=== PATIENT | female | born 1985 | race Caucasian/White ===

== ENCOUNTER 2017-05-09 05:37 | Outpatient (CLI) | payer MEDICAID ==
[~2017-05-09] VITALS: Ht 162.6 cm; Wt 68.2 kg
[~2017-05-09 05:37] MED LIST: ACHYD1T PO; FLUO20CA25 PO; FLX10C PO; HYDR-89 PO; IBP800T PO; PREN1TAB39; PREN1TAB39 PO; PREN1TAB71 PO
== END 2017-05-09 10:39 ==
LOC: PREOP 05:37
PROVIDERS: ATTEND Obstetrics & Gynecology
DX: Z01.818 Encounter for other preprocedural examination (principal); O02.1 Missed abortion

== ENCOUNTER 2017-05-16 06:47 | Day surgery (SDC) | payer MEDICAID, OTHER ==
--- NOTE | 2017-05-14 11:45 | HISTORY AND PHYSICAL ---
DICTATING PHYSICIAN: Dr. Mercado DATE OF ADMISSION: 05/16/2017 PREOPERATIVE DIAGNOSES: Blighted ovum blighted ovum. HISTORY OF PRESENT ILLNESS: The patient is a 32-year-old G7, P5, A1, white female currently at approximately the 7 and 9 weeks gestation. She has been followed with abnormally rising quantitative hCG and that has not developed either a yolk sac or a pole. There was no heart motion on ultrasound 05/06/2017. With a nonviable . The patient has had opted for observation until this point is ready to have the process completed. She will be admitted on Friday05/16/2017 for outpatient D\T\C. The patient denies bleeding, denies headache, denies chest pain denies shortness of breath. ALLERGIES: None. MEDICATIONS: vitamins and diclegis PAST MEDICAL HISTORY: Is significant for having had kidney stones in 1998 and again in the year 1999. PAST SURGICAL HISTORY: 1. Includes repair of a torn ACL in August 2003. 2. She had part of one of her kneecaps removed in May 2000. 3. The patient has had five vaginal deliveries without events. REVIEW OF SYSTEMS: Per the HPI. FAMILY HISTORY: Noncontributory. SOCIAL HISTORY: The patient denies tobacco, drug, or alcohol use. She is . HEENT: Normal. NECK: Supple with no lymphadenopathy. No thyromegaly. ABDOMEN: Soft, nontender, nondistended. EXTREMITIES: Extremities show no clubbing or cyanosis. There is no Homans sign. PELVIC EXAM: On 05/06/2017 showed a closed cervix with the uterus that was 6 to 8 week size and nontender. Ultrasound confirmed gestational sac consistent with 8-3/7 weeks. There was no heart motion. There was a suggestion of a yolk sac and a pole but that was pretty indefinite. The patient's blood type is O positive. ASSESSMENT AND PLAN: Approximately 8 week gestation with blighted ovum/missed AB. The patient will undergo outpatient D\T\C for resolution of this abnormal . Follow-up will be in clinic. Job ID: [id number] Dictated Date: 05/14/2017 11:18:28 Pot Annealer Date: 05/14/2017 11:33:52/juan
[~2017-05-16] VITALS: Ht 162.6 cm; Wt 68.2 kg
[2017-05-16] MEDS ORDERED: ceFAZolin 1,000 MG (ANCEF) VIAL ONE (06:49)
[2017-05-16] MEDS ORDERED: NS (IVPB) 50 ML ONE (06:49)
[2017-05-16 07:05] VITALS: BP 112/80
[2017-05-16] MEDS ORDERED: FAMOTIDINE 20MG/2ML IV (PEPCID) ONE (07:09)
[2017-05-16] MEDS ORDERED: ONDANSETRON 4 MG/2 ML (SDV) Z0FRAN ONE ×2 (07:09→08:22)
[2017-05-16 07:17] LABS: BASOPHILS % (AUTO) 0 % (0-10); EOSINOPHILS # (AUTO) 0.3 10^3/uL (0.0-0.3); EOSINOPHILS % (AUTO) 4 % (0-10); LYMPHOCYTES # (AUTO) 1.6 X 10^3 (1.0-4.0); LYMPHOCYTES % (AUTO) 22 % (12-44); MEAN CORPUSCULAR HEMOGLOBIN 29 PG (25-34); MEAN CORPUSCULAR HGB CONC 34 G/DL (32-36); MEAN CORPUSCULAR VOLUME 87 FL (80-99); MEAN PLATELET VOLUME 9.6 FL (7.4-10.4); MONOCYTES # (AUTO) 0.6 X 10^3 (0.0-1.0); MONOCYTES % (AUTO) 9 % (0-12); NEUTROPHILS # (AUTO) 4.9 X 10^3 (1.8-7.8); NEUTROPHILS % (AUTO) 66 % (42-75); PLATELET COUNT 235 10^3/uL (130-400); RED BLOOD COUNT 4.81 10^6/uL (4.35-5.85); RED CELL DISTRIBUTION WIDTH 12.6 % (10.0-14.5); WHITE BLOOD COUNT 7.5 10^3/uL (4.3-11.0)
[2017-05-16] MEDS ORDERED: LACTATED RINGERS 1,000 ML IV PRN (07:24)
[2017-05-16] MEDS ORDERED: FAMOTIDINE 20MG/2ML IV (PEPCID) IV ONE (07:30)
[2017-05-16] MEDS ORDERED: ONDANSETRON 4 MG/2 ML (SDV) Z0FRAN IV ONE (07:30)
[2017-05-16] MEDS ORDERED: ceFAZolin 1 GM/NS 50 ML IVPB IV ONE ×2 (07:45)
[2017-05-16] MEDS ORDERED: LIDOCAINE PF 2% 5 ML (XYLOCAINE) VIAL ONE (08:00)
[2017-05-16] MEDS ORDERED: proPOfol 200 MG/20 ML (DIPRIVAN) VIAL IV ONE (08:00)
[2017-05-16] MEDS ORDERED: MIDAZOLAM 2 MG/2 ML (VERSED) VIAL ONE (08:00)
[2017-05-16] MEDS ORDERED: SEVOFLURANE (ULTANE) 15 ML INHAL SOLN ONE ×3 (08:00→08:22)
[2017-05-16] MEDS ORDERED: fentaNYL INJECTION 100 MCG/2 ML AMP ONE (08:00)
[2017-05-16] MEDS ORDERED: LACTATED RINGERS 1,000 ML IV ONE (08:00)
[2017-05-16] MEDS ORDERED: D5 LR IV SOLUTION 1,000 ML IV SCH (08:07)
[2017-05-16] MEDS ORDERED: OXYC-202 PO (08:09)
--- NOTE | 2017-05-16 08:10 | Discharge Instructions ---
Discharge Instructions Discharge Medications New, Converted or Re-Newed RX: RX on Chart Patient Instructions Patient Instructions: as directed Return to The Hospital For: as directed Activity & Diet Discharge Diet: No Restrictions Activity as Tolerated: No Orders-Post D/C & Referrals Follow Up Appt: Call to make follow up appt. for patient in 2 weeks. Activity: Rest for 24 hours, than as tolerated. Diet: As tolerated-Clear Liquids only if nauseated. May shower or tub bathe as desired. No driving for 24 hours, no alcoholic beverages for 24 hours, and nothing per vagina (no tampons, douching, or intercourse) for 2 weeks. Patient to return to the clinic as soon as possible for: Temperature greater than 101F, Severe Pain, Foul discharge from incision or vagina, Excessive Bleeding (more than a period). ELIZABETH ANDREWS MD May 16, 2017 8:10 am
--- NOTE | 2017-05-16 08:11 | Progress Note-Pre Operative ---
Pre-Operative Progress Note H&P Reviewed The H&P was reviewed, patient examined and no changes noted. Date Seen by Provider: May 16, 2017 Time Seen by Provider: 08:10 Date H&P Reviewed: May 16, 2017 Time H&P Reviewed: 08:10 Pre-Operative Diagnosis: a plus week gestation with blighted ovum/missed AB ELIZABETH ANDREWS MD May 16, 2017 8:11 am
--- NOTE | 2017-05-16 08:11 | Progress Note-Post Operative ---
Post-Operative Progess Note Surgeon (s)/Vp Digital Marketing (s) Surgeon ELIZABETH ANDREWS MD Vp Digital Marketing: none Pre-Operative Diagnosis a plus week gestation with blighted ovum/missed AB Post-Operative Diagnosis same with pathology pending Procedure & Operative Findings Date of Procedure 05/16/17 Procedure Performed/Findings D&C for first trimester missed Anesthesia Type GETA Estimated Blood Loss Estimated blood loss (mL): 100cc Specimens/Packing Specimens Removed uterine contents/products of conception Packing: none ELIZABETH ANDREWS MD May 16, 2017 08:11
[2017-05-16] MEDS ORDERED: KETOROLAC 30 MG/ML VIAL IVP ONE (08:15)
[2017-05-16] MEDS ORDERED: PROMETHAZINE INJ 25 MG/ML (PHENERGAN) AMP IM ONE (08:15)
[2017-05-16] MEDS ORDERED: ONDANSETRON 4 MG/2 ML (SDV) Z0FRAN IVP PRN ×2 (08:15→09:00)
[2017-05-16] MEDS ORDERED: oxyCODONE/APAP 10/325MG (PERCOCET 10) TABLET PO PRN (08:15)
[2017-05-16] MEDS ORDERED: MEPERIDINE (DEMEROL) INJ 100 MG/ML IM ONE (08:15)
[2017-05-16] MEDS ORDERED: DEXAMETHASONE PF 10 MG/ML (DECADRON) VIAL ONE (08:22)
[2017-05-16] MEDS ORDERED: morphine INJ 10 MG/ML 1ML (SYR OR VIAL) IVP PRN (09:00)
[2017-05-16 09:25] VITALS: BP 101/71
[2017-05-16 09:55] VITALS: BP_SYST 91; BP_DIAS 64; BP_DIAS 68
--- NOTE | 2017-05-16 10:05 | OPERATIVE REPORT ---
DATE OF SERVICE: 05/16/2017 PREOPERATIVE DIAGNOSES: Blighted ovum/missed /first trimester. POSTOPERATIVE DIAGNOSES: Blighted ovum/missed /first trimester, with pathology pending. OPERATIVE PROCEDURE: D and C. OPERATIVE DESCRIPTION: With the patient in the supine position under satisfactory general anesthesia, she was repositioned in the candycane stirrups, then prepped and draped in the usual fashion for vaginal surgery. She had voided prior to coming to the operating room. A weighted speculum was placed in the posterior fornix of the vagina, the cervix exposed and grasped anteriorly with a single tooth tenaculum. The uterus was sounded to 14 cm with the use of sounds. The cervix was then serially dilated with Jamar dilators to accommodate a #10 curved sucking curet which was introduced in the uterine cavity. Curettage with removal of a large amount of trophoblastic and desidual appearing tissue, some blood clot, amniotic fluid and debris. The endometrial cavity was then sharply curettaged in all 4 quadrants to a good uterine cri. The curved sucking curet was reintroduced, all blood clot and debris evacuated from the uterus. The tenaculum was now removed. There was some bleeding from 1 of the punches. This was controlled with application of a silver nitrate stick. There was minimal bleeding from the cervical os. The uterus was decreased in size to approximately 6-8 weeks' size from her 10 weeks' size prior to the procedure. Estimated blood loss around 100 mL. The patient tolerated the procedure well and was uneventfully awakened from her general anesthesia and transferred to the recovery room in stable condition with plans for discharge home PAR. Sponge and needle counts were correct on completion of the procedure. Job ID: [id number] DocumentID: [id number] Dictated Date: 05/16/2017 08:39:01 User Experience Analyst Date: 05/16/2017 10:04:16 Dictated By: ELIZABETH ANDREWS MD
== END 2017-05-16 10:15 | disposition home or self-care (01) ==
LOC: SDC 06:47
PROVIDERS: ATTEND Obstetrics & Gynecology
DX: O02.1 Missed abortion (principal)
CPT/HCPCS: 36415; 85025; 87081

== ENCOUNTER 2018-04-12 13:03 | Emergency (ER) | payer OTHER ==
[~2018-04-12] VITALS: Ht 162.6 cm; Wt 72.6 kg
[~2018-04-12 13:03] MED LIST changes: +OXYC-202 PO
[2018-04-12] MEDS ORDERED: NS IV 1000 ML 1,000 ML IV SCH (13:15)
[2018-04-12] MEDS ORDERED: ONDANSETRON 4 MG/2 ML (SDV) Z0FRAN IVP ONE (13:15)
--- NOTE | 2018-04-12 13:20 | ED GI ---
General Chief Complaint: -Female Stated Complaint: 6 WEEKS , VOMITTING 3 DAYS Nursing Triage Note: ARRIVED VIA AMB TO ROOM 05. STATES SHE IS 6 WEEKS GESTATION AND HAS BEEN VOMITING X3 DAYS. Sepsis Screen: No Definite Risk Source of Information: Patient Exam Limitations: No Limitations History of Present Illness Date Seen by Provider: Apr 12, 2018 Time Seen by Provider: 13:19 Initial Comments to ER per private vehicle with reports of nausea and vomiting for 3 days. She is 6 weeks' gestation.she is AB 1. She denies any abdominal pain vaginal discharge or vaginal bleeding.she's been trying to take likely just but has been too nauseous to be able to swallow this. She's had success with Phenergan in the past. Timing/Duration: 2-3 Days Severity/Quality: Moderate Activities at Onset: None Allergies and Home Medications Allergies Coded Allergies: No Known Drug Allergies (Unverified , 05/09/17) Home Medications Promethazine HCl 25 Mg Supp.rect, 25 MG RC TID PRN for NAUSEA/VOMITING-1ST LINE Prescribed by: ALLEGRA ANDERSON on 04/12/18 1410 Promethazine HCl 25 Mg Tablet, 25 MG PO Q6H PRN for NAUSEA/VOMITING Prescribed by: ALLEGRA ANDERSON on 04/12/18 1410 Patient Home Medication List Home Medication List Reviewed: Yes Review of Systems Constitutional: see HPI; No chills, No fever EENTM: No Symptoms Reported Respiratory: No Symptoms Reported Cardiovascular: No Symptoms Reported Gastrointestinal: See HPI; Denies Abdominal Pain, Denies Constipated, Denies Diarrhea; Nausea, Vomiting Genitourinary: No Symptoms Reported Musculoskeletal: no symptoms reported Skin: no symptoms reported Psychiatric/Neurological: No Symptoms Reported Past Hstmtow-Gfljta-Qyuwbn Hx Patient Social History Alcohol Use: Denies Use Recreational Drug Use: No Smoking Status: Never a Smoker Recent Foreign Travel: No Contact w/Someone Who Travel: No Recent Infectious Disease Expo: No Recent Hopitalizations: No Seasonal Allergies Seasonal Allergies: No Past Medical History Surgeries: Yes (KNEE SCOPR, ACL REPAIR, D&C) Respiratory: No Cardiac: No Neurological: Yes Headaches /Migraines Reproductive Disorders: No Sexually Transmitted Disease: No HIV/AIDS: No Kidney Stones Gastrointestinal: No Musculoskeletal: No Endocrine: No (Goiter) Loss of Vision: Denies Hearing Impairment: Denies Cancer: No Psychosocial: Yes Depression Integumentary: No Blood Disorders: No Adverse Reaction/Blood Tranf: No (N/A) Family Medical History Alcoholism 03 FATHER Family history: Allergy 09 BROTHER (Allergic to MMR vaccine) Headache Hypercholesterolemia Psychotic disorder 03 MOTHER (Depression) Visual impairment 09 SISTER (Lazy eye) No Family History of: Abdominal aortic aneurysm Hayti's disease Aphasia Cancer Cancer of colon Cataract Chest pain Congenital heart disease Congestive heart failure Cystic fibrosis Dementia Dysphagia Family history: Alzheimer's disease Family history: Arthritis Family history: Asthma Family history: Breast disease Family history: Cardiovascular disease Family history: Coronary thrombosis Family history: Diabetes mellitus Family history: Gastrointestinal disease Family history: Glaucoma Family history: Hypertension Family history: Osteoporosis Family history: Thyroid disorder Hearing loss Heart disease Hereditary disease History of - anemia History of - respiratory disease History of drug abuse Human immunodeficiency virus (HIV) seropositivity Infertile Kidney disease Malignant neoplasm of lung Myocardial infarction Parkinson's disease Prostate cancer Seizure disorder Stroke Tuberculosis No Pertinent Family Hx Physical Exam Vital Signs Vital Signs - First Documented 04/12/18 13:10 Temp 98.0 Pulse 64 Resp 16 B/P (MAP) 116/79 (91) Pulse Ox 100 O2 Delivery Room Air Capillary Refill : Less Than 3 Seconds General Appearance: WD/WN, no apparent distress HEENT: PERRL/EOMI, normal ENT inspection Neck: non-tender, full range of motion Respiratory: no respiratory distress, no accessory muscle use Gastrointestinal: normal bowel sounds, non tender, soft; No distended, No guarding, No tenderness Extremities: normal range of motion, non-tender Neurologic/Psychiatric: alert, normal mood/affect, oriented x 3 Skin: normal color, warm/dry Progress/Results/Core Measures Results/Orders Lab Results Laboratory Tests Test 04/12/18 13:22 04/12/18 13:40 Range/Units White Blood Count 10.1 4.3-11.0 10^3/uL Red Blood Count 4.80 4.35-5.85 10^6/uL Hemoglobin 14.1 11.5-16.0 G/DL Hematocrit 41 35-52 % Mean Corpuscular Volume 85 80-99 FL Mean Corpuscular Hemoglobin 29 25-34 PG Mean Corpuscular Hemoglobin Concent 35 32-36 G/DL Red Cell Distribution Width 13.3 10.0-14.5 % Platelet Count 276 130-400 10^3/uL Mean Platelet Volume 9.5 7.4-10.4 FL Neutrophils (%) (Auto) 79 H 42-75 % Lymphocytes (%) (Auto) 14 12-44 % Monocytes (%) (Auto) 6 0-12 % Eosinophils (%) (Auto) 1 0-10 % Basophils (%) (Auto) 0 0-10 % Neutrophils # (Auto) 8.0 H 1.8-7.8 X 10^3 Lymphocytes # (Auto) 1.4 1.0-4.0 X 10^3 Monocytes # (Auto) 0.7 0.0-1.0 X 10^3 Eosinophils # (Auto) 0.1 0.0-0.3 10^3/uL Basophils # (Auto) 0.0 0.0-0.1 10^3/uL Sodium Level 137 135-145 MMOL/L Potassium Level 4.0 3.6-5.0 MMOL/L Chloride Level 106 98-107 MMOL/L Carbon Dioxide Level 18 L 21-32 MMOL/L Anion Gap 13 5-14 MMOL/L Blood Urea Nitrogen 12 7-18 MG/DL Creatinine 0.72 0.60-1.30 MG/DL Estimat Glomerular Filtration Rate > 60 BUN/Creatinine Ratio 17 Glucose Level 90 70-105 MG/DL Calcium Level 9.6 8.5-10.1 MG/DL Total Bilirubin 1.4 H 0.1-1.0 MG/DL Aspartate Amino Transf (AST/SGOT) 17 5-34 U/L Alanine Aminotransferase (ALT/SGPT) 14 0-55 U/L Alkaline Phosphatase 53 40-136 U/L Total Protein 7.6 6.4-8.2 GM/DL Albumin 4.5 3.2-4.5 GM/DL Human Chorionic Gonadotropin, Quant 30460 H <5 MIU/ML Urine Color YELLOW Urine Clarity CLEAR Urine pH 6 5-9 Urine Specific [place] 1.020 1.016-1.022 Urine Protein 2+ H NEGATIVE Urine Glucose (UA) NEGATIVE NEGATIVE Urine Ketones 4+ H NEGATIVE Urine Nitrite NEGATIVE NEGATIVE Urine Bilirubin NEGATIVE NEGATIVE Urine Urobilinogen 4 H NORMAL MG/DL Urine Leukocyte Esterase 1+ H NEGATIVE Urine RBC (Auto) 3+ H NEGATIVE Urine RBC 5-10 H /HPF Urine WBC NONE /HPF Urine Squamous Epithelial Cells NONE /HPF Urine Crystals NONE /LPF Urine Bacteria NEGATIVE /HPF Urine Casts NONE /LPF Urine Mucus LARGE H /LPF Urine Culture Indicated NO My Orders Orders - ALLEGRA ANDERSON APRN Cbc With Automated Diff (04/12/18 13:10) Comprehensive Metabolic Panel (04/12/18 13:10) Hcg,Quantitative (04/12/18 13:10) Ua Culture If Indicated (04/12/18 13:10) Iv Heplock-Insert (Order) (04/12/18 13:10) Ns Iv 1000 Ml (Sodium Chloride 0.9%) (04/12/18 13:15) Ondansetron Injection (Zofran Injectio (04/12/18 13:15) Promethazine Injection (Phenergan Injec (04/12/18 13:30) Medications Given in ED Current Medications Medications Dose Ordered Sig/Galilea Route Start Time Stop Time Status Last Admin Dose Admin Promethazine HCl 25 mg ONCE ONCE IVP 04/12/18 13:30 04/12/18 13:31 DC 04/12/18 13:28 25 MG Vital Signs/I&O 04/12/18 13:10 Temp 98.0 Pulse 64 Resp 16 B/P (MAP) 116/79 (91) Pulse Ox 100 O2 Delivery Room Air Blood Pressure Mean: 91 Departure Impression Primary Impression: Nausea/vomiting in Disposition: 01 HOME, SELF-CARE Condition: Stable Departure-Patient Inst. Decision time for Depature: 14:07 Referrals: ELIZABETH MERCADO MD (PCP) Primary Care Physician Patient Instructions: Nausea and Vomiting of (DC) Add. Discharge Instructions: 1. Return to ER for any concerns 2. Nausea medication as directed 3. Follow up with Dr Mercado as directed. All discharge instructions reviewed with patient and/or family. Voiced understanding. Scripts Promethazine HCl (Promethazine Tablet) 25 Mg Tablet 25 MG PO Q6H PRN for NAUSEA/VOMITING, #10 TAB Prov: ALLEGRA ANDERSON APRN 04/12/18 Promethazine HCl (Phenergan) 25 Mg Supp.rect 25 MG RC TID PRN for NAUSEA/VOMITING-1ST LINE, #10 SUPP.RECT Prov: ALLEGRA ANDERSON APRN 04/12/18 Copy Copies To 1: ELIZABETH MERCADO MD, PETER J APRN Apr 12, 2018 13:20
[2018-04-12 13:29] LABS: BASOPHILS % (AUTO) 0 % (0-10); EOSINOPHILS # (AUTO) 0.1 10^3/uL (0.0-0.3); EOSINOPHILS % (AUTO) 1 % (0-10); HEMATOCRIT 41 % (35-52); HEMOGLOBIN 14.1 G/DL (11.5-16.0); LYMPHOCYTES # (AUTO) 1.4 X 10^3 (1.0-4.0); LYMPHOCYTES % (AUTO) 14 % (12-44); MEAN CORPUSCULAR HEMOGLOBIN 29 PG (25-34); MEAN CORPUSCULAR HGB CONC 35 G/DL (32-36); MEAN CORPUSCULAR VOLUME 85 FL (80-99); MEAN PLATELET VOLUME 9.5 FL (7.4-10.4); MONOCYTES # (AUTO) 0.7 X 10^3 (0.0-1.0); MONOCYTES % (AUTO) 6 % (0-12); NEUTROPHILS % (AUTO) 79 % (42-75); PLATELET COUNT 276 10^3/uL (130-400); RED CELL DISTRIBUTION WIDTH 13.3 % (10.0-14.5); WHITE BLOOD COUNT 10.1 10^3/uL (4.3-11.0)
[2018-04-12] MEDS ORDERED: PROMETHAZINE INJ 25 MG/ML (PHENERGAN) AMP IVP ONE (13:30)
[2018-04-12 13:46] LABS: ALKALINE PHOSPHATASE 53 U/L (40-136); BILIRUBIN,TOTAL 1.4 MG/DL (0.1-1.0); BUN/CREATININE RATIO 17; CALCIUM 9.6 MG/DL (8.5-10.1); CARBON DIOXIDE 18 MMOL/L (21-32); CHLORIDE 106 MMOL/L (98-107); CREATININE SERUM 0.72 MG/DL (0.60-1.30); GFR ESTIMATED > 60; GLUCOSE 90 MG/DL (70-105); SODIUM 137 MMOL/L (135-145)
[2018-04-12 13:47] LABS: ALANINE AMINOTRANSFERASE 14 U/L (0-55); ALBUMIN 4.5 GM/DL (3.2-4.5); TOTAL PROTEIN 7.6 GM/DL (6.4-8.2)
[2018-04-12 13:48] LABS: BILIRUBIN,URINE NEGATIVE (NEGATIVE); CLARITY,URINE CLEAR; COLOR,URINE YELLOW; GLUCOSE, URINE (UA) NEGATIVE (NEGATIVE); KETONES,URINE 4+ (NEGATIVE); LEUKOCYTE ESTERASE ,URINE 1+ (NEGATIVE); NITRITE,URINE NEGATIVE (NEGATIVE); PH,URINE 6 (5-9); PROTEIN,URINE 2+ (NEGATIVE); UROBILINOGEN,URINE 4 MG/DL (NORMAL)
[2018-04-12 14:01] LABS: BACTERIA,URINE NEGATIVE /HPF
[2018-04-12] MEDS ORDERED: PROM25TA14 PO (14:10)
[2018-04-12] MEDS ORDERED: PROM25SU43 RC (14:10)
[2018-04-12 14:43] VITALS: BP 111/73
[2018-04-12 15:30] VITALS: BP 114/71
== END 2018-04-12 15:29 | disposition home or self-care (01) ==
LOC: EDUNIT# 13:03 → ER 13:07
DX: O21.9 Vomiting of pregnancy, unspecified (principal); O99.351 Diseases of the nervous system complicating pregnancy, first trimester; G43.909 Migraine, unspecified, not intractable, without status migrainosus; O99.341 Other mental disorders complicating pregnancy, first trimester; F32.9 Major depressive disorder, single episode, unspecified; Z82.49 Family history of ischemic heart disease and other diseases of the circulatory system; Z87.442 Personal history of urinary calculi; Z3A.01 Less than 8 weeks gestation of pregnancy
CPT/HCPCS: 36415; 80053; 81000; 84702; 85025; 96361; 96374; 99282

== ENCOUNTER 2018-11-24 09:56 | Inpatient (IN) | payer OTHER ==
[~2018-11-24] VITALS: Ht 162.6 cm; Wt 80.3 kg
[2018-11-24] VITALS (53 sets, daily range): BP systolic 82–138; BP diastolic 43–88
--- NOTE | 2018-11-24 09:50 | NUR ---
MALCOLM NEUMANN presented to unit via AMBULATORY from 'S OFFICE, accompanied by S/O FOR INDUCTION OF LABOR. MALCOLM NEUMANN weighed, gowned, voided, and to bed. EFHM and TOCO applied, VS taken. MALCOLM NEUMANN oriented to bed controls, call light, TV, heat, and A/C controls.
[~2018-11-24 09:56] MED LIST changes: -OXYC-202 PO; +OXYC1TAB12 PO; +PROM25SU43 RC; +PROM25TA14 PO
--- NOTE | 2018-11-24 10:00 | NUR ---
INITIAL ASSESSMENT COMPLETED AT BEDSIDE, VSS, SEE INTERVENTIONS FOR DETAILED ASSESSMENTS, PLAN OF CARE EXPLAINED, PT VERBALIZES UNDERSTANDING, NO QUESTIONS OR CONCERNS NOTED, WILL MONITOR CLOSELY, PTS S/O AT BEDSIDE.
[2018-11-24] MEDS: D5 LR IV SOLUTION 1,000 ML IV SCH ×2 (10:15→16:49)
[2018-11-24] MEDS: CATHETER FLUSH 10 ML SYR IV SCH ×2 (10:29→21:44)
[2018-11-24 10:35] LABS: BASOPHILS % (AUTO) 0 % (0-10); EOSINOPHILS # (AUTO) 0.1 10^3/uL (0.0-0.3); EOSINOPHILS % (AUTO) 1 % (0-10); HEMATOCRIT 33 % (35-52); LYMPHOCYTES # (AUTO) 1.2 X 10^3 (1.0-4.0); LYMPHOCYTES % (AUTO) 12 % (12-44); MEAN CORPUSCULAR HEMOGLOBIN 22 PG (25-34); MEAN CORPUSCULAR HGB CONC 30 G/DL (32-36); MEAN CORPUSCULAR VOLUME 75 FL (80-99); MEAN PLATELET VOLUME 9.5 FL (7.4-10.4); MONOCYTES # (AUTO) 0.7 X 10^3 (0.0-1.0); MONOCYTES % (AUTO) 6 % (0-12); NEUTROPHILS # (AUTO) 8.2 X 10^3 (1.8-7.8); NEUTROPHILS % (AUTO) 80 % (42-75); PLATELET COUNT 238 10^3/uL (130-400); RED CELL DISTRIBUTION WIDTH 16.7 % (10.0-14.5); WHITE BLOOD COUNT 10.2 10^3/uL (4.3-11.0)
[2018-11-24] MEDS ORDERED: OMEP20TA33 PO (10:36)
[2018-11-24] MEDS ORDERED: OSLT75C PO (10:37)
[2018-11-24] MEDS ORDERED: SUFENTA 0.6MCG/ML BUPIVA 0.125 100 ML ONE (10:44)
--- NOTE | 2018-11-24 10:50 | NUR ---
1050 MICH LOZANO AND Mary CORTEZ CRNA here for epidural placement. Procedure explained, consent reviewed and signed by anesthesia. Questions answered to patient's satisfaction. Time out taken to verify correct patient/procedure. 1056 Patient up to side of bed, assisted into sitting position. 1059 Betadine prep done x3 and sterile drape applied. 1103 Local done, see anesthesia record. 1114 Test dose given, see anesthesia record for drug and dosage. Epidural catheter secured in place. Epidural placement complete. 1120 Assisted back into bed, monitors adjusted. Epidural dosed, see anesthesia record. Epidural of Sufenta/Bupvicaine @12cc/hr stated per pump. Patient tolerated procedure well.
[2018-11-24] MEDS ORDERED: fentaNYL INJECTION 100 MCG/2 ML AMP ONE (10:54)
[2018-11-24] MEDS ORDERED: LACTATED RINGERS 1,000 ML IV ONE (11:27)
[2018-11-24] MEDS ORDERED: METOCLOPRAMIDE INJ 10 MG/2 ML (REGLAN) IV PRN (11:30)
[2018-11-24] MEDS ORDERED: EPIDURAL (SUFENTA 0.6MCG/ML BUPIVA 0.125%) 100 ML BAG EPI PRN (11:30)
[2018-11-24] MEDS ORDERED: NALOXONE 0.4 MG/ML 1 ML (NARCAN) VIAL IV PRN ×2 (11:30)
[2018-11-24] MEDS ORDERED: diphenhydrAMINE 50 MG/ML INJ (BENADRYL) IV PRN (11:30)
[2018-11-24] MEDS ORDERED: ONDANSETRON 4 MG/2 ML (SDV) Z0FRAN IV PRN (11:30)
[2018-11-24] MEDS ORDERED: OXYTOCIN/NORMAL SALINE 500 ML IV ONE (11:59)
[2018-11-24] MEDS ORDERED: LIDOCAINE/EPI 2% 1:200,00 (XYLOCAINE) 10 ML VIAL ONE (11:59)
[2018-11-24] MEDS ORDERED: OXYTOCIN/NORMAL SALINE 500 ML IV SCH ×3 (12:08→19:42)
--- NOTE | 2018-11-24 12:28 | History & Physical ---
History and Physical Date Seen by Provider: Nov 24, 2018 Time Seen by Provider: 12:26 This patient is a 33-year-old A2 white female with an EDC of 2 2119 putting her at 38-5/7 weeks gestation. She was seen in clinic on this date with complaint of pain pressure and contractions. She denies rupture membranes or bleeding. She does have a history of rapid and lives quite remote from the hospital. She was found to be 4 cm dilated 50 percent effaced 0 station with a vertex presentation a bulging bag. She was sent to labor and delivery for management. Her GBS culture was negative. She's had no other problems with his to date. Allergies are none Medications are vitamins Medical social and surgical histories are per the antepartum record HEENT exam is normal Neck is supple no lymphadenopathy no thyromegaly Abdomen is gravid soft nontender nondistended Extreme show no clubbing cyanosis. There is no Homans sign. Pelvic exam repeated on admission now shows a cervix 57 Ms. dilated over 50 percent effaced and 0 station vertex presentation a bulging bag was ruptured with release of clear fluid. Patient has continued amberly every 3 minutes. monitor is reassuring Assessment and plan term at 38+ weeks' gestation in labor in a grand multipara. Patient admitted with anticipation for vaginal delivery. Epidural has been placed 38+ weeks' gestation in labor Allergies and Home Medications Allergies Coded Allergies: No Known Drug Allergies (Unverified , 05/09/17) Home Medications Omeprazole Magnesium 20 Mg Tablet.dr, 20 MG PO DAILY, (Reported) Oseltamivir Phosphate 75 Mg Cap, 75 MG PO DAILY, (Reported) Patient Home Medication List Home Medication List Reviewed: Yes Clinical Quality Measures DVT/VTE Risk/Contraindication: Risk Factor Score Per Nursin RFS Level Per Nursing on Admit: 1=Low/No VTE PPX ELIZABETH ANDREWS MD Nov 24, 2018 12:28
[2018-11-24] MEDS ORDERED: FLU QUADRIvalent (5+ YOA) 2018-2019 (AFLURIA) 0.5 ML IM ONE (12:45)
[2018-11-24] MEDS ORDERED: LIDOCAINE/EPI 2% 1:200,00 (XYLOCAINE) 10 ML VIAL INJ ONE (16:30)
--- NOTE | 2018-11-24 19:00 | NUR ---
REPORT TO CHICA SCHUMACHER.
--- NOTE | 2018-11-24 19:30 | NUR ---
FFU/2, moderate rubra bleeding, no clots noted. pericare preformed and pad changed. Assessment completed at bedside. VSS. No questions or concerns voiced at this time will continue to monitor.
[2018-11-24] MEDS ORDERED: ONDANSETRON 4 MG/2 ML (SDV) Z0FRAN IVP PRN (19:45)
[2018-11-24] MEDS ORDERED: BENZOCAINE/MENTHOL (DERMOPLAST) 56 ML CAN TP PRN (19:45)
[2018-11-24] MEDS ORDERED: MEASLES,MUMPS,RUBELLA 1 EA INJ SC ONE (19:45)
[2018-11-24] MEDS ORDERED: oxyCODONE/APAP 5/325MG (PERCOCET 5) TABLET PO PRN (19:45)
[2018-11-24] MEDS ORDERED: TETANUS,DIPTH,PERTUSS P/F (BOOSTRIX) 0.5 ML VIAL IM ONE (19:45)
--- NOTE | 2018-11-24 19:45 | NUR ---
FFU/2, moderate rubra bleeding, no clots noted.
--- NOTE | 2018-11-24 20:00 | NUR ---
FFU/2, light to moderate rubra bleeding, no clots noted.
--- NOTE | 2018-11-24 20:30 | NUR ---
FFU/2, light to moderate rubra bleeding, no clots noted. Pt. ambulated to bathroom with standby assist. Ambulated and voided without difficulty. Pericare preformed and pad changed.
--- NOTE | 2018-11-24 21:40 | NUR ---
Pt. transferred via wheelchair to room 309, accompanied by RN, , and infant. All personal belongings in pt. possession. Oriented to room, call light, and room service. Ice water provided. packet given and explained. No questions or concerns voiced at this time. Will continue to monitor.
[2018-11-24] MEDS: DOCUSATE SODIUM 100 MG (COLACE) CAP PO SCH (21:58)
[2018-11-24] MEDS: KETOROLAC 30 MG/ML VIAL IV SCH (21:58)
[2018-11-25 00:10] VITALS: BP 112/61
--- NOTE | 2018-11-25 03:44 | OPERATIVE REPORT ---
DATE OF SERVICE: 11/24/2018 DELIVERY NOTE The patient delivered by term spontaneous vaginal delivery at 38 and 5/7 weeks gestation, a viable female with Apgars of 8 and 9 at 1 and 5 minutes respectively, weight of 8 pounds and 7 ounces. time of 1826. The infant was delivered over an intact perineum under epidural analgesia. The was bulb suctioned on delivery of the head. The umbilical cord was doubly clamped, father cut the cord and the baby was taken to the warmer at the mom's request. The delivery was quite intense and mom was little bit overwhelmed immediately after delivery. She recovered quite quickly. The placenta delivered spontaneously Baires. It was normal with a 3-vessel cord. The placenta was sent to pathology for permanent section. The cervix, vagina, rectum and perineum were examined and found intact. Estimated blood loss for the delivery was around 250 mL. Sponge and needle counts were correct on completion of delivery. The patient remained in the LDR for recovery. The baby remained with the mom. Job ID: [id number] DocumentID: [id number] Dictated Date: 11/24/2018 18:46:16 Wall Worker Date: 11/25/2018 03:43:42 Dictated By: ELIZABETH ANDREWS MD MTDD
[2018-11-25 04:30] VITALS: BP 106/59
[2018-11-25] MEDS: KETOROLAC 30 MG/ML VIAL IV SCH (04:37)
--- NOTE | 2018-11-25 07:55 | Progress Note-Standard ---
Standard Progress Note Progress Notes/Assess & Plan Date Seen by a Provider: Nov 25, 2018 Time Seen by a Provider: 07:54 Progress/Assessment & Plan This patient is without complaint. She is ablating, voiding, tolerating oral intake well has good pain control. Vital Signs 11/24/18 11/25/18 16:34 04:30 Temp 97.0 Pulse 64 Resp 18 B/P (MAP) 106/59 (75) Pulse Ox 99 O2 Delivery Room Air Vital signs are stable. Patient is afebrile. Fundus is firm below the umbilicus and nontender. Extremities show no clubbing or cyanosis. There is no Homans sign. Assessment and plan day number 1 status post term spontaneous vaginal delivery at 38-5/7 weeks gestation. Plan is for routine convalescence care today and discharge home tomorrow ELIZABETH ANDREWS MD Nov 25, 2018 07:54
[2018-11-25] MEDS ORDERED: DOCU100C37 PO (07:56)
[2018-11-25] MEDS ORDERED: IBUP-1780 PO (07:56)
[2018-11-25] MEDS ORDERED: OXYC1TAB87 PO (07:56)
--- NOTE | 2018-11-25 07:58 | Discharge Instructions ---
Discharge Instructions Discharge Medications New, Converted or Re-Newed RX: RX on Chart Patient Instructions Patient Instructions: DIRECTED Return to The Hospital For: DIRECTED Activity & Diet Discharge Diet: No Restrictions Activity as Tolerated: No Orders-Post D/C & Referrals Follow Up Appt: Call to make follow up appt. for patient in 4 weeks. Activity Per routine post vaginal delivery instructions. Please call in RX to patient pharmacy. Diet as tolerated Patient may shower or tub bathe as desired. ELIZABETH ANDREWS MD Nov 25, 2018 07:58
[2018-11-25] MEDS ORDERED: IBUPROFEN 800 MG (MOTRIN) TAB PO ONE ×2 (09:46→15:38)
[2018-11-25] MEDS ORDERED: TETANUS,DIPTH,PERTUSS P/F (BOOSTRIX) 0.5 ML VIAL IM ONE (09:50)
[2018-11-25 09:52] VITALS: BP 112/58
--- NOTE | 2018-11-25 09:52 | NUR ---
AM shift assessment completed and vital signs obtained, see interventions. Plan of care reviewed with patient. Patient verbalizes understanding and questions answered. Shower supplies provided. Addendum: 11/25/18 at 1313 by LEXY HOLLIS RN Scheduled Motrin PO given.
[2018-11-25] MEDS: DOCUSATE SODIUM 100 MG (COLACE) CAP PO SCH ×2 (09:55→21:47)
[2018-11-25] MEDS: IBUPROFEN 800 MG (MOTRIN) TAB PO SCH ×3 (09:55→21:47)
[2018-11-25] MEDS: D5 LR IV SOLUTION 1,000 ML IV SCH ×2 (10:15→10:16)
[2018-11-25 12:31] VITALS: BP 119/74
--- NOTE | 2018-11-25 14:17 | Anesthesia-Regional Post-Op ---
Regional Patient Condition Mental Status: Alert, Oriented x3 Circulation: Same as Pre-Op Headache: Absent Sensation: Full Recovery Motor Block: Absent Post Op Complications Complications None Follow Up Care/Instructions Patient Instructions None needed. Anesthesia/Patient Condition Patient is doing well, no complaints, stable vital signs, no apparent adverse anesthesia problems. DONNA BRIDGES DO Nov 25, 2018 14:17
[2018-11-25 15:43] VITALS: BP 112/71
--- NOTE | 2018-11-25 21:45 | NUR ---
PM shift assessment completed,VSS, see interventions for further documentation. Plan of care reviewed with patient. Patient verbalizes understanding and questions answered. Call light within reach. Will continue to monitor.
[2018-11-25 21:46] VITALS: BP 112/72
[2018-11-26 04:07] VITALS: BP 94/61
[2018-11-26] MEDS: IBUPROFEN 800 MG (MOTRIN) TAB PO SCH (04:08)
--- NOTE | 2018-11-26 07:40 | NUR ---
DR. ANDREWS HERE TO SEE PT, DISCHARGE ORDERS REC'D.
--- NOTE | 2018-11-26 07:49 | Progress Note-Standard ---
Standard Progress Note Progress Notes/Assess & Plan Date Seen by a Provider: Nov 26, 2018 Time Seen by a Provider: 07:47 Progress/Assessment & Plan This patient is without complaint. She is ablating, voiding, tolerating oral intake well has good pain control. Vital Signs 11/24/18 2 16:34 04:30 Temp 97.0 Pulse 64 Resp 18 B/P (MAP) 106/59 (75) Pulse Ox 99 O2 Delivery Room Air Vital signs are stable. Patient is afebrile. Fundus is firm below the umbilicus and nontender. Extremities show no clubbing or cyanosis. There is no Homans sign. Assessment and plan day number 1 status post term spontaneous vaginal delivery at 38-5/7 weeks gestation. Plan is for routine convalescence care today and discharge home tomorrow There were 2018 Patient is without complaint. She is ambulating, voiding, tolerating oral intake well has good pain control. Patient is requesting discharge home. Vital Signs 11/26/18 04:07 Temp 97.9 Pulse 70 Resp 16 B/P (MAP) 94/61 (72) Pulse Ox 96 O2 Delivery Room Air Vital signs are stable. Patient is afebrile. Fundus is firm below the umbilicus and nontender. Extremities show no clubbing cyanosis. There is no Homans sign. There is some pretibial pitting edema that is well within normal. Assessment and plan day number 2 status post term spontaneous vaginal delivery doing well. Plan is for discharge home with follow-up in clinic Final Diagnosis Spontaneous vaginal delivery at 38-5/7 weeks' gestation ELIZABETH ANDREWS MD Nov 26, 2018 07:48
[2018-11-26] MEDS: DOCUSATE SODIUM 100 MG (COLACE) CAP PO SCH (08:47)
[2018-11-26 08:48] VITALS: BP 114/64
--- NOTE | 2018-11-26 09:25 | NUR ---
DISCHARGE INSTRUCTIONS EXPLAINED TO PT WITH COPY PROVIDED TO PT ALONG WITH NARCOTIC PRESCRIPTION. PT VERBALIZES UNDERSTANDING OF TEACHING, SIGNS TO VERIFY. PT NOTIFIED OF FOLLOW UP, OTHER SCRIPTS TO BE CALLED TO PREFERRED PHARMACY. PT DENIES FURTHER NEEDS OR CONCERNS AT THIS TIME.
--- NOTE | 2018-11-26 09:30 | NUR ---
Prescriptions called in to [facility] per pt request
--- NOTE | 2018-11-26 10:10 | NUR ---
PT TAKEN OFF UNIT IN WHEELCHAIR ACCOMPANIED BY S.O., , AND STUDENT NURSES. TO PRIVATE VEHICLE WITH ALL PERSONAL BELONGINGS. NO S/S OF DISTRESS NOTED.
== END 2018-11-26 10:10 | disposition home or self-care (01) | DRG 807 ==
LOC: LDRP 09:56
PROVIDERS: ADMIT Obstetrics & Gynecology; ATTEND Obstetrics & Gynecology
PROC: 10E0XZZ Delivery of Products of Conception, External Approach (ICD-10-PCS; principal; 2018-11-24)
DX: O80 Encounter for full-term uncomplicated delivery (principal); Z37.0 Single live birth; Z3A.38 38 weeks gestation of pregnancy
CPT/HCPCS: 36415; 85025; 86850; 86900; 86901; 90715

== ENCOUNTER 2019-01-21 12:41 | Outpatient (CLI) | payer OTHER ==
[~2019-01-21] VITALS: Ht 162.6 cm; Wt 70.8 kg
[~2019-01-21 12:41] MED LIST changes: +DOCU100C37 PO; +IBUP-1780 PO; +OMEP20TA33 PO; +OSLT75C PO; +OXYC1TAB87 PO
[2019-01-21] MEDS ORDERED: FLUO20CA25 PO (12:54)
[2019-01-21] MEDS ORDERED: PNV1TABL PO (12:54)
[2019-01-21 13:08] VITALS: BP 124/77
[2019-01-21 13:19] LABS: BASOPHILS % (AUTO) 0 % (0-10); EOSINOPHILS # (AUTO) 0.2 10^3/uL (0.0-0.3); EOSINOPHILS % (AUTO) 4 % (0-10); HEMATOCRIT 36 % (35-52); HEMOGLOBIN 11.6 G/DL (11.5-16.0); LYMPHOCYTES # (AUTO) 1.7 X 10^3 (1.0-4.0); LYMPHOCYTES % (AUTO) 37 % (12-44); MEAN CORPUSCULAR HEMOGLOBIN 26 PG (25-34); MEAN CORPUSCULAR HGB CONC 32 G/DL (32-36); MEAN CORPUSCULAR VOLUME 80 FL (80-99); MEAN PLATELET VOLUME 9.3 FL (7.4-10.4); MONOCYTES # (AUTO) 0.4 X 10^3 (0.0-1.0); MONOCYTES % (AUTO) 8 % (0-12); NEUTROPHILS # (AUTO) 2.4 X 10^3 (1.8-7.8); NEUTROPHILS % (AUTO) 51 % (42-75); PLATELET COUNT 286 10^3/uL (130-400); RED CELL DISTRIBUTION WIDTH 21.8 % (10.0-14.5); WHITE BLOOD COUNT 4.7 10^3/uL (4.3-11.0)
== END 2019-01-21 13:07 | disposition home or self-care (01) ==
LOC: PREOP 12:41
PROVIDERS: ATTEND Obstetrics & Gynecology
DX: Z01.812 Encounter for preprocedural laboratory examination (principal); Z11.2 Encounter for screening for other bacterial diseases; N81.4 Uterovaginal prolapse, unspecified; N39.3 Stress incontinence (female) (male); D64.9 Anemia, unspecified
CPT/HCPCS: 36415; 85025; 87081

== ENCOUNTER 2019-02-05 09:53 | Day surgery (SDC) | payer OTHER ==
[2019-02-05] VITALS (9 sets, daily range): BP systolic 104–137; BP diastolic 68–84
[~2019-02-05] VITALS: Ht 162.6 cm; Wt 70.8 kg
[~2019-02-05 09:53] MED LIST changes: +PNV1TABL PO
[2019-02-05] MEDS ORDERED: CATHETER FLUSH 10 ML SYR IV PRN (10:15)
[2019-02-05] MEDS ORDERED: ceFAZolin INJECTION 1,000 MG in WATER (STERILE) FOR INJECTION 10 ML IV ONE (10:15)
[2019-02-05] MEDS ORDERED: ESTRADIOL VAGINAL CREAM 42.5 GM (ESTRACE) VG ONE (10:26)
[2019-02-05] MEDS ORDERED: BUP/EPI 0.25% 1:200,000 (MARCAINE) 10 ML VIAL IJ ONE (10:26)
[2019-02-05] MEDS: LACTATED RINGERS 1,000 ML IV PRN ×3 (10:30→14:25)
[2019-02-05] MEDS ORDERED: ROCURONIUM 10 MG/ML 5 ML SYRINGE IV ONE (10:34)
[2019-02-05] MEDS ORDERED: ONDANSETRON 4 MG/2 ML (SDV) Z0FRAN ONE (10:34)
[2019-02-05] MEDS ORDERED: SEVOFLURANE (ULTANE) 15 ML INHAL SOLN ONE ×8 (10:34→14:17)
[2019-02-05] MEDS ORDERED: MIDAZOLAM 2 MG/2 ML (VERSED) VIAL ONE (10:34)
[2019-02-05] MEDS ORDERED: fentaNYL INJECTION 100 MCG/2 ML AMP ONE ×2 (10:34→14:21)
[2019-02-05] MEDS ORDERED: DEXAMETHASONE 10 MG/ML (DECADRON) 1 ML VIAL ONE (10:34)
[2019-02-05] MEDS ORDERED: NEOSTIGMINE 1 MG/ML 5 ML SYRINGE ONE (10:34)
[2019-02-05] MEDS ORDERED: KETOROLAC 30 MG/ML VIAL ONE ×2 (10:34→14:17)
[2019-02-05] MEDS ORDERED: LIDOCAINE PF 2% 5 ML (XYLOCAINE) VIAL ONE (10:34)
[2019-02-05] MEDS ORDERED: GLYCOPYRROLATE 0.2 MG/ML (ROBINUL) 2 ML VIAL ONE (10:34)
[2019-02-05] MEDS ORDERED: proPOfol 200 MG/20 ML (DIPRIVAN) VIAL IV ONE (10:46)
--- NOTE | 2019-02-05 12:33 | Progress Note-Pre Operative ---
Pre-Operative Progress Note H&P Reviewed The H&P was reviewed, patient examined and no changes noted. Date Seen by Provider: Feb 05, 2019 Time Seen by Provider: 12:33 Date H&P Reviewed: Feb 05, 2019 Time H&P Reviewed: 12:33 Pre-Operative Diagnosis: UTEROVAGINALK PROLAPSE AND HUMA ELIZABETH ANDREWS MD Feb 05, 2019 12:33
--- NOTE | 2019-02-05 12:35 | Progress Note-Post Operative ---
Post-Operative Progess Note Surgeon (s)/Fisheries Enforcement Officer (s) Surgeon ELIZABETH ANDREWS MD Fisheries Enforcement Officer: Jet SCHUMACHER Pre-Operative Diagnosis UTEROVAGINAL PROLAPSE AND HUMA Post-Operative Diagnosis same with path pending Procedure & Operative Findings Date of Procedure 02/05/19 Procedure Performed/Findings TLH/BS/A&P Repair with Ent repair and PVS with Cysto by Dr. Flores Anesthesia Type geta Estimated Blood Loss Estimated blood loss (mL): 400 cc Specimens/Packing Specimens Removed uterus and tubes Packing: kerlix in vagina ELIZABETH ANDREWS MD Feb 05, 2019 12:35
[2019-02-05] MEDS: KETOROLAC 30 MG/ML VIAL IVP SCH ×2 (14:15→20:10)
[2019-02-05] MEDS ORDERED: morphine INJ 10 MG/ML 1ML (SYR OR VIAL) ONE (14:55)
[2019-02-05] MEDS ORDERED: HYDROmorphone 2 MG/ML VIAL (DILAUDID) ONE (15:09)
[2019-02-05] MEDS ORDERED: ESTROGENS CONJ IV 25 MG/5 ML (PREMARIN) VIAL IVP ONE (15:15)
[2019-02-05] MEDS ORDERED: morphine INJ 10 MG/ML 1ML (SYR OR VIAL) IVP ONE (15:15)
[2019-02-05] MEDS ORDERED: HYDROmorphone 2 MG/ML VIAL (DILAUDID) IV ONE (15:15)
[2019-02-05] MEDS ORDERED: BENZOCAINE/MENTHOL (DERMOPLAST) 56 ML CAN TP PRN (15:15)
[2019-02-05] MEDS ORDERED: ONDANSETRON 4 MG/2 ML (SDV) Z0FRAN IVP PRN ×2 (15:15)
[2019-02-05] MEDS ORDERED: PROMETHAZINE INJ 25 MG/ML (PHENERGAN) AMP IVP ONE (15:15)
[2019-02-05] MEDS ORDERED: D5 LR IV SOLUTION 1,000 ML IV SCH (15:15)
[2019-02-05] MEDS ORDERED: ESTROGENS CONJ IV 25 MG/5 ML (PREMARIN) VIAL ONE (15:17)
[2019-02-05] MEDS ORDERED: WATER (STERILE) FOR INJECTION 10 ML ONE (15:18)
--- NOTE | 2019-02-05 15:26 | OPERATIVE REPORT ---
DATE OF SERVICE: PREOPERATIVE DIAGNOSIS: Urinary incontinence. POSTOPERATIVE DIAGNOSIS: Urinary incontinence. OPERATION PERFORMED: Pubovaginal sling and cystoscopy. SURGEON: Artemio Morales MD. We BOILER OR ENGINE OPERATOR: Dr. Mercado. ANESTHESIA: General. COMPLICATIONS: None. DESCRIPTION OF PROCEDURE: After Dr. Mercado performed his first part of the surgery that he will dictate, we went ahead and inserted the Elmore catheter draining clear fluid. I passed the device on both sides using the described technique. The sling was sitting nicely under the mid urethra. I removed the Elmore catheter and performed cystoscopy to confirm the integrity of the bladder and urethra and no foreign body and integrity of the ureteric orifices. I left the bladder at least half full to perform the manual Valsalva maneuver after removing the cystoscope, was mildly positive. I tightened the sling on the right side, re-performed the maneuver and it was negative. I elected to leave it as such since the patient did not have any significant incontinence and not to run the risk of retention. I reinserted the Elmore catheter draining clear fluid. Estimated blood loss for my part negligible and Dr. Mercado's procedure was the rest of the surgery that he will dictate. Job ID: [id number] DocumentID: [id number] Dictated Date: 02/05/2019 14:13:25 Cargo Supervisor Date: 02/05/2019 15:25:17 Dictated By: ARTEMIO MORALES MD
[2019-02-05] MEDS ORDERED: oxyCODONE/APAP 5/325MG (PERCOCET 5) TABLET PO PRN (15:30)
[2019-02-05] MEDS ORDERED: PROMETHAZINE INJ 25 MG/ML (PHENERGAN) AMP IM PRN (15:30)
[2019-02-05] MEDS ORDERED: WATER (STERILE) FOR INJ 10 ML BTL INJ ONE (15:30)
--- NOTE | 2019-02-05 15:40 | NUR ---
MALCOLM NEUMANN admitted to room 3306-1, with an admitting diagnosis of POST RLTH, on 02/05/19 from [facility] via [facility], accompanied by STAFF.MALCOLM NEUMANN introduced to surroundings, call light, bed controls, phone, TV, temperature control, lights, meal times, smoking policy, visitor policy, side rail policy, bathrooms and showers. Patient Rights given to patient in the handbook. MALCOLM NEUMANN verbalizes understanding that [facility] is not responsible for the loss or damage to any personal effects or valuables that are kept in the patients posession during their hospitalization. The following Patient Care Plans were discussed with the PATIENT: Discharge Planning, PAIN MANAGEMENT, POSTOP CARE. MALCOLM NEUMANN verbalizes understanding of Interdisciplinary Patient Education. Patient and/or family were informed about the Rapid Response Team and its purpose.
[2019-02-05] MEDS ORDERED: MEPERIDINE (DEMEROL) INJ 100 MG/ML IM PRN (16:00)
[2019-02-05] MEDS ORDERED: MEPERIDINE (DEMEROL) INJ 100 MG/ML ONE (16:00)
[2019-02-05] MEDS ORDERED: MEPERIDINE (DEMEROL) INJ 50 MG/ML ONE (16:00)
--- NOTE | 2019-02-05 16:30 | NUR ---
RT AT BEDSIDE EDUCATING PATIENT ON IS.
--- NOTE | 2019-02-05 16:45 | NUR ---
RESTING WITH EYES CLOSED. S/O AT BEDSIDE.
--- NOTE | 2019-02-05 16:51 | OPERATIVE REPORT ---
DATE OF SERVICE: 02/05/2019 PREOPERATIVE DIAGNOSES: Uterovaginal prolapse and stress urinary incontinence. POSTOPERATIVE DIAGNOSES: Uterovaginal prolapse and stress urinary incontinence. OPERATIVE PROCEDURE: Total laparoscopic hysterectomy with bilateral salpingectomies as well as anterior and posterior vaginal repair with enterocele repair with Dr. Flores performing a pubovaginal sling and cystoscopy. OPERATIVE DESCRIPTION: With the patient in the supine position under satisfactory general anesthesia, she was repositioned in dorsal lithotomy position in the [facility] and prepped and draped in the usual fashion for abdominal and vaginal surgery using robotic assistance. Weighted speculum was placed in the posterior fornix of vagina revealing a second-degree plus cystocele. The cervix was present just inside the introitus representing a second-degree uterine prolapse. There was a generous rectocele when the uterus and the bladder were elevated between first and second-degree. The urethra was hypermobile and detached. Cervix was grasped anteriorly with single-tooth tenaculum. Uterus was sounded to 11 cm with uterine sound. Cervix was then serially dilated with Jamar dilators to accommodate a Lydia II manipulator, which was placed using a 6 mm x 8 cm uterine probe and a 30 mm colpotomy ring. Sutures of #1 Vicryl placed at 3 o'clock and 9 o'clock position of the cervix to affix the uterus to the manipulator. Elmore catheter was placed in the urinary bladder. The patient brought in low dorsolithotomy position. The speculum and tenaculum were removed from the vagina. A 12 mm incision made 3 cm superior to the umbilicus, 8 mm incisions were made 8 cm lateral to the umbilicus. All incisional sites were infiltrated with 0.25% Marcaine with epinephrine prior to incisions. A Veress needle placed in the midline incision, correct placement confirmed with water drop test. The abdomen insufflated with 2.4 liters of carbon dioxide. Veress needle was removed and a 12 mm Optiview laparoscopic port placed. Then, the laparoscope was introduced, the abdominal wall was transilluminated and 8 mm ports were placed through the lateral incision. The patient placed in Trendelenburg allowing the bowel to spill up out of the pelvis and then the da Ne column was advanced on the patient and docked. A bipolar fenestrated grasper was placed in the left port, a vessel sealer on the right. The pelvis was examined. Both ovaries were normal. The fallopian tubes were somewhat tortuous and had some clubbing. There were a couple of small endometriosis implants on the anterior cul-de-sac at the lower uterine segment. The bladder appeared normal. Both ureters were somewhat well away from the IP ligaments and seemed to peristalse freely. The appendix was identified. It was a normal vermiform appendix. Laparoscope was brought back to the pelvis. The right fallopian tube was grasped and elevated. The mesosalpinx was clamped, cauterized and divided over to the uteroovarian pedicle, was clamped, cauterized and divided using the vessel sealer in stepwise fashion. Then, we went across the round ligament down the broad ligament to the cardinal ligament and down the cardinal ligament to the colpotomy ring. The same procedure was performed on the left, allowing for conservation of both ovaries. Again, both ureters were well away from the areas of dissection. The anterior lower uterine segment peritoneum was now exposed and using a monopolar shear in place of the vessel sealer, anterior uterine segment peritoneum was divided. The bladder was carefully dissected down off lower uterine segment. Colpotomy incision was started at the 12 o'clock position onto the colpotomy ring. That incision was continued circumferentially until the entire colpotomy ring was exposed. The uterus with the tubes still attached was extracted through the vagina. The vaginal cuff was closed with two sutures of V-Loc alok suture starting from the first angle and continued just past the midpoint taking care to include the uterine vessel pedicles in the closure for assuring hemostasis. A second suture was used from the left closing the balance of the cuff and then the last several stitches with each suture was used to reperitonealize the vaginal cuff. The pelvis was examined for hemostasis, which was complete. There was a small amount of blood in the cul-de-sac that was just left in situ to allow for the body to reabsorb. Both ureters were normal in caliber and peristalsing freely with no remaining abnormal pathology and no bleeding, the procedure was terminated. The operative instruments were removed under direct vision as were the ports. The patient was brought out of Trendelenburg. The abdomen was evacuated of insufflating gas in the process of removing the port. The skin incisions were stapled after first closing the fascia at the supraumbilical incision with a [id number] suture of 2-0 Vicryl. The patient now repositioned in dorsal lithotomy position. Two Kwabena clamps were placed on the anterior vaginal wall. There is midpoint. The vaginal wall was opened in the midline with Metzenbaum scissors to allow for an anterior repair. The bladder was carefully dissected off the muscularis of the vagina back to the pubic rami bilaterally. Endopelvic fascia was then plicated with 2-0 Vicryl sutures elevating the bladder and lengthening the urethra. At this point, Dr. Flores assumed care of the patient for pubovaginal sling and cystoscopy. I remained to assist. On completion of Dr. Flores's portion of the procedure, I resumed care of the patient. Redundant anterior vaginal muscularis mucosa was removed sharply. Vaginal wall was closed with a running lock suture of 3-0 Vicryl Rapide. Good support was evident and good reapproximation was achieved and good hemostasis was achieved. Elmore catheter was left to dependent drainage and was draining clear yellow urine at this point. Posterior repair was then affected by placing towel clamps on the perineum and the hymenal ring at 5 o'clock and 7 o'clock positions and inverted triangle of skin was removed from the perineal body and upright triangle from the posterior vaginal floor. The rectovaginal space was entered sharply and dissected bluntly to the apex of vagina. There was a small enterocele that was reduced and then plicated with 2-0 Vicryl pursestring suture. That being done, the rectovaginal space was obliterated with additional sutures of 2-0 Vicryl. The perineal body was restored with 2-0 Vicryl. Digital rectal exam confirmed no stricture or stenosis of the rectum and no sutures into or through the rectal mucosa. Redundant posterior vaginal muscularis mucosa was removed sharply. Vaginal wall was closed with a running lock suture of 3-0 Vicryl Rapide that closure was continued past the hymenal ring down on the perineal body back up subcutaneous to the hymenal ring where the suture was tied. The vagina was now filled with Estrace vaginal cream and a pack of Kerlix gauze was placed. Elmore catheter was left to dependent drainage. Digital rectal exam again confirmed integrity of the rectum. Sponge and needle counts were correct on completion of the procedure. Estimated blood loss was around 300-400 mL. The patient tolerated the procedure well and was uneventfully, awakened from her general anesthesia and transferred to recovery room in stable condition. Job ID: [id number] DocumentID: [id number] Dictated Date: 02/05/2019 14:39:42 Clinical Transplant Coordinator Date: 02/05/2019 16:50:10 Dictated By: ELIZABETH ANDREWS MD
[2019-02-06 00:10] VITALS: BP 102/64
[2019-02-06] MEDS: KETOROLAC 30 MG/ML VIAL IVP SCH (01:59)
[2019-02-06 05:15] VITALS: BP 104/70
[2019-02-06 07:40] VITALS: BP 103/59
--- NOTE | 2019-02-06 07:48 | NUR ---
Dr. Mercado here to see patient. New orders received.
[2019-02-06] MEDS ORDERED: IBUPROFEN 800 MG (MOTRIN) TAB PO ONE (08:22)
--- NOTE | 2019-02-06 08:28 | NUR ---
AM shift assessment completed, see interventions. Vital signs obtained by [employer] Pattern Changer And Repairer Justina. Plan of care reviewed with patient. Patient verbalizes understanding and questions answered. Scheduled Colace and Motrin PO given. Percocet 1 PO given for patient's c/o pain rated 4/10. Bladder scan completed showing estimated residual volume to be less than 50ml.
--- NOTE | 2019-02-06 08:35 | Progress Note-Standard ---
Standard Progress Note Progress Notes/Assess & Plan Date Seen by a Provider: Feb 06, 2019 Time Seen by a Provider: 08:34 Progress/Assessment & Plan This patient is without complaint. She is ambulating, voiding, tolerating oral intake well and has good pain control. Vital Signs Date Time Temp Pulse Resp B/P (MAP) Pulse Ox O2 Delivery O2 Flow Rate FiO2 02/06/19 07:40 99.2 92 14 103/59 (74) 94 Room Air 02/06/19 05:15 99.4 95 18 104/70 (81) 97 02/06/19 00:10 98.6 99 16 102/64 (77) 95 02/05/19 20:05 97 Room Air 02/05/19 20:05 98.0 103 16 104/68 (80) 97 02/05/19 15:55 99 Room Air 02/05/19 15:45 98.7 107 20 122/76 (91) 99 Room Air 02/05/19 15:40 97.7 14 97 Room Air 02/05/19 15:30 16 99 OxyMask 02/05/19 15:20 18 99 OxyMask 10 02/05/19 15:10 18 99 OxyMask 10 02/05/19 15:00 14 99 OxyMask 10 02/05/19 14:50 16 100 OxyMask 10 02/05/19 14:42 98.2 22 98 OxyMask 10 I & O 02/06/19 07:00 Intake Total 4210 ml Output Total 1600 ml Balance 2610 ml And signs are stable. Patient is afebrile. The abdomen is benign. Bowel sounds are present in all quadrants. The surgical dressings are clean dry and intact Extremities showed no clubbing cyanosis. There is no Homans sign. Assessment and plan postoperative day number 1 doing well. Plan is for discharge home with follow-up in clinic Final Diagnosis Uterovaginal prolapse with stress urinary incontinence ELIZABETH ANDREWS MD Feb 06, 2019 08:35
[2019-02-06] MEDS ORDERED: IBUP-1780 PO (08:36)
[2019-02-06] MEDS ORDERED: DOCU100C37 PO (08:36)
[2019-02-06] MEDS ORDERED: OXYC1TAB87 PO (08:36)
--- NOTE | 2019-02-06 08:38 | Discharge Instructions ---
Discharge Instructions Discharge Medications New, Converted or Re-Newed RX: RX on Chart Patient Instructions Patient Instructions: As directed Return to The Hospital For: as directed Activity & Diet Discharge Diet: No Restrictions Activity as Tolerated: No Orders-Post D/C & Referrals Follow Up Appt: Return to clinic with me on Friday, January 19, 2019 at 930 a.m. for staple removal Call to make follow up appt. for patient in 4 weeks. Return to clinic with Dr. Flores per his instructions Activity: Rest for 24 hours, than as tolerated. Wound Care: May remove Band-Aid tomorrow. Replace as desired. Keep incisions clean and dry. Wash daily with soap and water. Please call in RX to patient pharmacy. Diet: As tolerated-Clear Liquids only if nauseated. Tomorrow, may shower or tub bathe as desired. No driving for 24 hours, no alcoholic beverages for 24 hours, and nothing per vagina (no tampons, douching, or intercourse) for 8 weeks. Patient to return to the clinic as soon as possible for: Temperature greater than 101F, Severe Pain, Foul discharge from incision or vagina, Excessive Bleeding (more than a period). ELIZABETH ANDREWS MD Feb 06, 2019 08:38
[2019-02-06] MEDS ORDERED: DOCUSATE SODIUM 100 MG (COLACE) CAP PO SCH (09:00)
--- NOTE | 2019-02-06 09:30 | NUR ---
Dr. Flores here to see patient. New orders received.
--- NOTE | 2019-02-06 09:42 | Progress Note-Urology ---
Progress Note-Urology Progress Notes/Assess & Plan Progress/Assessment & Plan VOIDED WELL TWICE. DRY. PVR LESS THAN 50. HAPPY. HOME WITH INSTRUCTIONS Final Diagnosis INCONTINENCE TRACY MORALES MD Feb 06, 2019 09:42
--- NOTE | 2019-02-06 12:09 | NUR ---
Discharge instructions and medications reviewed with patient both written and verbally. Patient verbalizes understanding and denies any current questions or concerns at this time.
--- NOTE | 2019-02-06 12:44 | NUR ---
Patient discharged at this time in a wheelchair and accompanied by [place] [employer] Linotype Mechanic. No signs or symptoms of distress noted.
[2019-02-06] MEDS ORDERED: IBUPROFEN 800 MG (MOTRIN) TAB PO SCH (18:00)
--- NOTE | 2019-02-07 15:02 | Anesthesia-General Post-Op ---
General Patient Condition Mental Status/LOC: Same as Preop Cardiovascular: Satisfactory Nausea/Vomiting: Absent Respiratory: Satisfactory Pain: Controlled Complications: Absent Post Op Complications Complications None Follow Up Care/Instructions Patient Instructions None needed. Anesthesia/Patient Condition Patient Condition Patient is doing well, no complaints, stable vital signs, no apparent adverse anesthesia problems. No complications reported per nursing. JOSEPH KELLEY CRNA Feb 07, 2019 15:02
== END 2019-02-06 12:44 | disposition home or self-care (01) ==
LOC: SDC 09:53 → WS 15:40 → SDC 02-06 12:44
PROVIDERS: ATTEND Obstetrics & Gynecology
DX: N81.2 Incomplete uterovaginal prolapse (principal); N81.6 Rectocele; N39.3 Stress incontinence (female) (male); N72 Inflammatory disease of cervix uteri; N88.8 Other specified noninflammatory disorders of cervix uteri; E04.9 Nontoxic goiter, unspecified
CPT/HCPCS: 84703; 86850; 86900; 86901; 94664